=== PATIENT | male | born 1945 | race Caucasian/White ===

== ENCOUNTER → 2023-05-01 10:15 | Outpatient (REF) | payer OTHER, SELFPAY | LOC: RAD 10:15 | PROVIDERS: ATTENDING PHYSICIAN Internal Medicine Cardiovascular Disease; FAMILY PHYSICIAN Family Medicine | DX: I71.40 Abdominal aortic aneurysm, without rupture, unspecified (principal) | CPT/HCPCS: 76770 ==

== ENCOUNTER → 2023-05-30 06:32 | Day surgery (SDC) | payer OTHER, SELFPAY | LOC: GI 06:32 | PROVIDERS: ATTENDING PHYSICIAN Internal Medicine Gastroenterology; FAMILY PHYSICIAN Family Medicine | DX: D12.0 Benign neoplasm of cecum (principal); D12.2 Benign neoplasm of ascending colon; K64.8 Other hemorrhoids; R19.5 Other fecal abnormalities | CPT/HCPCS: 45385; 88305 ==

== ENCOUNTER → 2024-01-13 15:03 | Outpatient (REF) | payer OTHER, SELFPAY | LOC: RAD 15:03 | PROVIDERS: ATTENDING PHYSICIAN Internal Medicine Cardiovascular Disease; FAMILY PHYSICIAN Family Medicine | DX: I71.40 Abdominal aortic aneurysm, without rupture, unspecified (principal) | CPT/HCPCS: 76770 ==

== ENCOUNTER → 2024-01-15 11:02 | Outpatient (REF) | payer OTHER, SELFPAY | LOC: DHCBC/DCA 11:02 | PROVIDERS: ATTENDING PHYSICIAN Internal Medicine Cardiovascular Disease; FAMILY PHYSICIAN Family Medicine | DX: I10 Essential (primary) hypertension (principal); I71.20 Thoracic aortic aneurysm, without rupture, unspecified | CPT/HCPCS: 78452; 93017; A9500; J2785 ==

== ENCOUNTER → 2024-07-07 10:08 | Outpatient (REF) | payer OTHER, SELFPAY | LOC: HWRAD 10:08 | PROVIDERS: ATTENDING PHYSICIAN Internal Medicine Critical Care Medicine; FAMILY PHYSICIAN Family Medicine | DX: Z87.891 Personal history of nicotine dependence (principal) | CPT/HCPCS: 71271 ==

== ENCOUNTER → 2024-12-30 12:38 | Outpatient (REF) | payer OTHER, SELFPAY | LOC: HWRAD 12:38 | PROVIDERS: ATTENDING PHYSICIAN Internal Medicine Critical Care Medicine; FAMILY PHYSICIAN Family Medicine | DX: R91.8 Other nonspecific abnormal finding of lung field (principal) | CPT/HCPCS: 71250 ==